=== PATIENT | female | born 1980 | race Caucasian/White ===

== ENCOUNTER 2018-11-17 17:45 | Emergency (ER) | payer MEDICAID, OTHER ==
[~2018-11-17] VITALS: Ht 162.6 cm; Wt 70.0 kg
[2018-11-17 18:32] LABS: CLARITY,URINE CLEAR (Clear); COLOR,URINE YELLOW (Yellow); GLUCOSE, URINE NEGATIVE (Neg); KETONES,URINE NEGATIVE (Neg); LEUKOCYTE ESTERASE ,URINE NEGATIVE (Neg); NITRITES, URINE NEGATIVE (Neg); OCCULT BLOOD,URINE SMALL (Neg); PROTEIN,URINE NEGATIVE (Neg); UROBILINOGEN,URINE 0.2 E.U/dL (0.2-1.0)
[2018-11-17 18:37] LABS: URINE HCG NEGATIVE (NEG)
[2018-11-17 18:40] LABS: UA COLLECTION TYPE VOIDED
[2018-11-17 18:41] LABS: BACTERIA,URINE FEW /HPF (Neg); RBC,URINE 0-2 /HPF (0-2); SQUAMOUS EPITHELIAL CELL,UR FEW /LPF (FEW); WBC,URINE NONE SEEN /HPF (0-4)
[2018-11-17 18:44] LABS: URINE AMPHETAMINE SCREEN NEGATIVE (Neg); URINE BARBITUATE SCREEN NEGATIVE (Neg); URINE BENZODIAZEPINES SCREEN NEGATIVE (Neg); URINE CANNABINOID SCREEN NEGATIVE (Neg); URINE COCAINE SCREEN NEGATIVE (Neg); URINE METHADONE SCREEN NEGATIVE (Neg); URINE OPIATE SCREEN NEGATIVE (Neg); URINE PHENCYCLIDINE SCREEN NEGATIVE (Neg)
[2018-11-17 18:52] LABS: BASOPHILS # (AUTO) 0.1 X10'3 (0-0.2); BASOPHILS % (AUTO) 0.6 % (0-1); EOSINOPHILS # (AUTO) 0.2 X10'3 (0-0.9); EOSINOPHILS % (AUTO) 1.8 % (0-6); HEMATOCRIT 39.5 % (35.0-45.0); HEMOGLOBIN 13.1 g/dl (12.0-16.0); LYMPHOCYTES # (AUTO) 2.3 X10'3 (1.1-4.8); LYMPHOCYTES % (AUTO) 21.9 % (21-51); MEAN CORPUSCULAR HEMOGLOBIN 27.1 PG (27.0-31.0); MEAN CORPUSCULAR VOLUME 82.1 FL (78-98); MEAN PLATELET VOLUME 7.9 FL (7.4-10.4); MONOCYTES # (AUTO) 0.6 X10'3 (0-0.9); NEUTROPHILS # (AUTO) 7.1 X10'3 (1.8-7.7); NEUTROPHILS % (AUTO) 69.7 % (42-75); PLATELET COUNT 359 X10'3 (140-440); RED BLOOD COUNT 4.82 X10'6 (4.20-5.60); RED CELL DISTRIBUTION WIDTH 12.9 % (11.5-14.5); WHITE BLOOD COUNT 10.3 X10'3 (4.5-11.0)
[2018-11-17 18:59] LABS: ALANINE AMINOTRANSFERASE 18 U/L (12-78); ALBUMIN 3.4 G/DL (3.4-5.0); ALKALINE PHOSPHATASE 49 IU/L (46-116); ANION GAP 7 (8-16); ASPARTATE AMINO TRANSFERASE 13 U/L (10-37); BILIRUBIN,TOTAL 0.7 MG/DL (0.1-1.0); BLOOD UREA NITROGEN 7 MG/DL (7-18); BUN/CREATININE RATIO 11.1 (6.6-38.0); CALCIUM 8.8 MG/DL (8.5-10.1); CHLORIDE 103 MMOL/L (99-107); CREATININE 0.63 MG/DL (0.40-0.90); GLUCOSE 112 MG/DL (70-104); POTASSIUM 3.3 MMOL/L (3.5-5.1); SODIUM 139 MMOL/L (135-145); TOTAL CARBON DIOXIDE 28.9 MMOL/L (24-32); TOTAL PROTEIN 6.9 G/DL (6.4-8.2); eGFR > 90 ML/MIN
[2018-11-17 19:00] VITALS: BP 126/73
[2018-11-17 19:09] LABS: ETHANOL < 0.010 GM/DL (0.0-0.010)
--- NOTE | 2018-11-17 19:09 | NUR ---
PT IS A WELL KEPT 38 Y/O F WHO IS DEAF. PT IS WEARING WEATHER APPROPRIATE CLOTHING AND DOES NOT APPEAR MALNURISHED. LOUIE KYLE AND MYSELF ATTEMPTED TO INTERVIEW PT BUT HAD SOME TROUBLE WITH COMMUNICATION DUE TO CONDITION ABOVE. PT APPEARS TO BE ABLE TO READ AND WRITE AND TO THE BEST OF MY KNOWLEDGE IS ANSWERING QUESTIONS APPROPRIATELY. SHE STATES SHE IS FROM [place], [place] BUT DOESN'T KNOW WHERE SHE IS STAYING. PT DENIES MEDICAL COMPLAINTS, DENIES PAIN AND WILL NOT DESCRIBE WHY SHE CAME TO THE ER. PT WANTS TO SLEEP AND APPEARS DISINTERESTED IN TALKING ABOUT HER MEDICAL COMPLAINT IF ANY. I ASKED PATIENT IF THERE WAS SOMEONE I COULD CALL FOR HER BUT SHE SAYS NO, PT STATES THAT SHE HAS NO FAMILY.
[2018-11-17 20:28] LABS: MAGNESIUM 1.9 MG/DL (1.5-2.4)
[2018-11-17] MEDS ORDERED: magnesium oxide 400mg tablet PO ONE (20:30)
[2018-11-17] MEDS ORDERED: potassium Cl 20 mEq SR tablet PO ONE (20:30)
[2018-11-17] MEDS ORDERED: TETanus/Pertussis (Acell)/Diphther VAC/PF (Tdap-Adult) 0.5ml syringe IM ONE (21:10)
--- NOTE | 2018-11-17 21:21 | NUR ---
MD BEAL AT THE BEDSIDE TO DISCUSS THE PATIENTS LACK OF MEDICAL EMERGENCY, NEED FOR A TETANUS SHOT IN ORDER TO BE PLACED IN PUBLIC SHELTERS, AND HER REFUSAL TO SIGN FOR RELEASE OF MEDICAL RECORDS. MD BEAL SPENT EXTENSIVE TIME HAND WRITTING NOTES TO THE PATIENT, THE PATIENT WAS ABLE TO WRITE NOTES BACK AND SEEMED TO BE ALERT AND ORIENTED. PT CONTINUED, TO REFUSE CARE AND WOULD NOT GIVE MYSELF OR THE DOCTOR ANY INFORMATION THAT WOULD ALLOW US TO HELP HER. MD ASSESSED PATIENT FOR WEATHER APPROPRIATE CLOTHING WHICH SHE HAS AND UPON DISCHARGING THE PATIENT WE WILL PROVIDER HER WITH A BAGGED LUNCH.
== END 2018-11-17 21:45 | disposition home or self-care (01) ==
LOC: ER 17:45
DX: H91.93 Unspecified hearing loss, bilateral (principal); Z88.6 Allergy status to analgesic agent
CPT/HCPCS: 36415; 80053; 80305; 80320; 81001; 81025; 83735; 84443; 85025; 99283; 99284

== ENCOUNTER 2018-11-19 17:43 | Emergency (ER) | payer MEDICAID, OTHER ==
[~2018-11-19] VITALS: Ht 160 cm; Wt 65.9 kg
[2018-11-19 19:02] VITALS: BP 118/67
== END 2018-11-19 19:04 ==
LOC: ER 17:44
DX: Z02.89 Encounter for other administrative examinations (principal); Z88.6 Allergy status to analgesic agent
CPT/HCPCS: 99283